=== PATIENT | male | born 1960 | race Caucasian/White ===

== ENCOUNTER 2020-05-04 22:41 | Emergency (ER) | payer SELFPAY ==
--- NOTE | ~2020-05-04 | CT_ITS ---
EXAMINATION: CT abdomen pelvis w con DATE: 05/04/2020 23:55 INDICATION: Rectal bleeding for 3 hours TECHNIQUE: Computed tomography (CT) of the abdomen and pelvis was performed without intravenous contr ast. The dose-length product was 543.22 mGy-cm. Automated exposure control and iterative reconstructi on technique were employed. COMPARISON: No prior studies for comparison. FINDINGS: Lung bases unremarkable. Heart size normal. There is pectus excavatum. Heart size normal. T here are liver cysts. The spleen, pancreas, adrenal glands and kidneys are unremarkable. Nonobstructi ve bowel gas pattern. Bladder wall is diffusely thickened with perivesical infiltration. Mildly enlar ged portacaval lymph node measuring 12 mm, likely reactive. Fat-containing umbilical hernia. No free air or free fluid. Nonobstructive bowel gas pattern. Colonic diverticulosis without evidence for dive rticulitis. Normal appendix. Grade 1 spondylolisthesis at L5-S1 with associated spondylosis at this l evel. IMPRESSION: 1. Bladder wall thickening with perivesical fatty infiltration, compatible cystitis. Correlate clinic ally with urinalysis. Reviewed, dictated and finalized at location A. ITAL SCIENTIST IMPRESSION: 1. Bladder wall thickening with perivesical fatty infiltration, compatible cyst itis. Correlate clinically with urinalysis.
[2020-05-04 22:46] VITALS: BP 150/87; PULSE 75; RESP 18; TEMP 36.2; O2SAT 97
[2020-05-04 23:01] VITALS: PULSE 74; RESP 17; O2SAT 98
[2020-05-04 23:02] VITALS: BP 170/89; PULSE 69; RESP 13; O2SAT 98
[2020-05-04] MEDS: PANTOPRAZOLE SODIUM IV 40 MG VIAL IV PUSH (23:10)
[2020-05-04] MEDS: ONDANSETRON INJ 4 MG/2 ML VIAL IV PUSH (23:10)
[2020-05-04] MEDS: SODIUM CHLORIDE 0.9% IV 1,000 ML 999 ML IV CONT (23:10)
[2020-05-04 23:15] VITALS: PULSE 75; RESP 22
[2020-05-04 23:24] LABS: Basophils Percent Auto 0.9 % (0.2-1.2); Eosinophils Absolute Auto 0.3 K/mm3 (0-0.3); Hematocrit 42.2 % (42.0-52.0); Hemoglobin 14.3 g/dL (14.0-18.0); Lymphocytes Absolute Auto 2.14 K/mm3 (0.9-3.2); Lymphocytes Percent Auto 48.2 % (18.3-44.2); Mean Corpuscular HGB Conc 33.9 g/dl (32-36); Mean Corpuscular Hemoglobin 31.4 pg (26-34); Mean Corpuscular Volume 92.5 fl (80-100); Mean Platelet Volume 12.3 fl (7.4-10.4); Monocytes Absolute Auto 0.5 K/mm3 (0.1-0.6); Monocytes Percent Auto 11.3 % (2.6-8.5); Neutrophils Absolute Auto 1.5 K/mm3 (1.3-6.7); Neutrophils Percent Auto 32.6 % (45.5-73.1); Platelet Count Result 156 k/mm3 (150-375); Red Blood Count 4.56 M/mm3 (4.6-6.20); Red Cell Distribution Width 13.2 % (11.5-14.5); White Blood Count 4.4 K/mm3 (4.5-10.0)
[2020-05-04 23:34] LABS: INR 1.1; Partial Thromboplastin Time 29.1 SECONDS (22.3-36.8); Prothrombin Time 14.4 Seconds (11.1-14.7)
[2020-05-04 23:37] LABS: Alanine Aminotransferase 31 U/L (4-50); Albumin Level 4.2 g/dL (3.5-5.1); Alkaline Phosphatase 68 U/L (38-126); Anion Gap 8 mmol/L (8-16); Aspartate Amino Transferase 38 U/L (17-59); Bilirubin,Total 0.3 mg/dL (0.2-1.3); Blood Urea Nitrogen 14 mg/dL (9-20); Carbon Dioxide 28 mmol/L (22-30); Chloride 106 mmol/L (98-107); Estimated CRCL calculation 93 ml/min; Estimated Glomerular Filt Rate > 60; Glucose 105 mg/dL (75-110); Lipase 119 U/L (23-300); Magnesium 1.9 mg/dL (1.6-2.3); Potassium 3.6 mmol/L (3.4-5.0); Sodium 142 mmol/L (137-145)
--- NOTE | 2020-05-05 00:58 | ED.GENADULT ---
HPI - General Adult General Chief complaint: GI Bleed Stated complaint: Blooding from rectum Time Seen by Provider: 05/04/20 22:54 History of Present Illness HPI narrative: Patient is a 59-year-old gentleman who presents the emergency department with chief complaint of rectal bleeding. Patient reports that this evening he had 3 episodes of bright red blood per rectum. Patient reports he has had no pain with these episodes reports that he has not had this happen before is not on anticoagulants or any antiplatelet therapy. The patient reports he takes occasional ibuprofen. Patient denies abdominal pain denies nausea or vomiting. Patient denies lightheadedness or near syncope. Related Data Allergies Allergy/AdvReac Type Severity Reaction Status Date / Time No Known Allergies Allergy Verified 05/04/20 22:48 Review of Systems Review of Systems: Narrative: A 10 system review of systems was completed on the patient and is negative except for what is stated in the HPI. Nursing and ancillary documentation was reviewed. PMFSH Past Medical History Medical History Diverticulosis Family History Family History Father Diabetes mellitus Family history of cardiovascular disease Acute myocardial infarction Mother Family history of lung cancer Diabetes mellitus Sibling Depression Other Asthma Social History Social History Smoking status: Never smoker Alcohol intake: never Exam Narrative: Exam Narrative: GENERAL: Well-appearing, well-nourished, and in no acute distress. HEAD: Normocephalic, atraumatic. EYES: PERRLA and EOMI. ENT: Nares clear, no rhinorrhea or epistaxis. Mucous membranes moist. NECK: Supple. CHEST: Clear to auscultation. No respiratory distress. HEART: Regular rate and rhythm. No murmur heard. Normal peripheral pulses. ABDOMEN: Soft, nontender, nondistended, normal active bowel sounds. EXTREMITIES: Normal range of motion. No edema. SKIN: Warm, dry, no rash. NEURO: No focal deficits. Alert and oriented x3. PSYCH: Normal mood and affect. Course Course Emergency Course: CT scan of the abdomen pelvis showed evidence of diverticulosis without evidence of diverticulitis. Vital Signs Vital signs: Vital Signs Temperature 36.2 C L 05/04/20 22:46 Pulse Rate 75 05/04/20 22:46 Respiratory Rate 18 05/04/20 22:46 Blood Pressure 150/87 H 05/04/20 22:46 Pulse Oximetry 97 05/04/20 22:46 Temperature 36.2 C L 05/04/20 22:46 Pulse Rate 75 05/04/20 23:15 Respiratory Rate 22 H 05/04/20 23:15 Blood Pressure 170/89 H 05/04/20 23:02 Pulse Oximetry 98 05/04/20 23:02 Medical Decision Making Vital Signs Vital Signs: Vital Signs Temperature 36.2 C L 05/04/20 22:46 Pulse Rate 75 05/04/20 22:46 Respiratory Rate 18 05/04/20 22:46 Blood Pressure 150/87 H 05/04/20 22:46 Pulse Oximetry 97 05/04/20 22:46 Temperature 36.2 C L 05/04/20 22:46 Pulse Rate 75 05/04/20 23:15 Respiratory Rate 22 H 05/04/20 23:15 Blood Pressure 170/89 H 05/04/20 23:02 Pulse Oximetry 98 05/04/20 23:02 Lab Data Result diagrams: 05/04/20 23:16 05/04/20 23:16 Labs: Lab Results 05/04/20 05/04/20 05/04/20 Range/Units 23:14 23:16 23:16 WBC 4.4 L (4.5-10.0) K/mm3 RBC 4.56 L (4.6-6.20) M/mm3 Hgb 14.3 (14.0-18.0) g/dL Hct 42.2 (42.0-52.0) % MCV 92.5 (80-100) fl MCH 31.4 (26-34) pg MCHC 33.9 (32-36) g/dl RDW 13.2 (11.5-14.5) % Plt Count 156 (150-375) k/mm3 MPV 12.3 H (7.4-10.4) fl Immature Gran % (Auto) 0.0 (0-0.5) % Neut % (Auto) 32.6 L (45.5-73.1) % Lymph % (Auto) 48.2 H (18.3-44.2) % Logan % (Auto) 11.3 H (2.6-8.5) % Eos % (Auto) 7.0 H (0-4.4) % Baso % (Aut
[2020-05-05 01:21] VITALS: BP 139/82; PULSE 57; RESP 14; O2SAT 97
== END 2020-05-05 01:15 | disposition home or self-care (01) ==
PROVIDERS: Emergency Provider Emergency Medicine; PCP Family Medicine
DX: K62.5 Hemorrhage of anus and rectum (principal); K57.90 Diverticulosis of intestine, part unspecified, without perforation or abscess without bleeding
CPT/HCPCS: 36415; 74177; 80053; 83690; 83735; 85025; 85610; 85730; 86850; 86900; 86901; 96361; 96374; 96375; 99284; C9113; J2405; J7030; Q9967

== ENCOUNTER 2020-12-08 21:36 | Inpatient (IN) | payer OTHER, SELFPAY ==
--- NOTE | ~2020-12-08 | CT_ITS ---
EXAMINATION: CTA chest PE protocol DATE: 12/09/2020 03:31 INDICATION: Shortness of breath. Positive d-dimer. Positive Covid. TECHNIQUE: Computed tomography angiography (CTA) of the chest was performed with 100 mL Omnipaque-350 intravenous contrast timed to evaluate the pulmonary arteries. Coronal maximum intensity projection 3D-reconstructions were created by the technologist. Automated exposure control and iterative reconst ruction technique were employed. Exam dose: 302.09 mGy-cm total exam DLP. COMPARISON: 12/08/2020 PA and lateral chest FINDINGS: Pectus excavatum. Borderline heart size. No pericardial or pleural effusion. No thoracic ao rtic aneurysm or dissection. There is diagnostic contrast enhancement of the pulmonary arteries. No central or large pulmonary emb olus is identified. Evaluation of the more peripheral pulmonary arterial branches is limited by motio n artifact. Extensive patchy groundglass infiltrates scattered throughout the lungs, suggesting Covid pneumonia. Trace left pleural effusion. No suspicious osteolytic or osteoblastic lesions. Degenerative changes of the thoracic spine. IMPRESSION: Extensive patchy groundglass infiltrates scattered throughout both lungs, suggesting Cov id 19 pneumonia No central or large pulmonary embolus is identified Pectus excavatum Reviewed, dictated and finalized at Location [facility]. Reviewed, dictated and finalized at location A. IMPRESSION: Extensive patchy groundglass infiltrates scattered throughout both lungs, suggesting Covid 19 pneumonia No central or large pulmonary embolus is identified Pectus excavatum
--- NOTE | ~2020-12-08 | XR_ITS ---
EXAMINATION: XR chest 2V DATE: 12/08/2020 22:04 INDICATION: COVID positive presenting with shortness of breath and cough TECHNIQUE: PA and lateral views of the chest were obtained. COMPARISON: None FINDINGS: Patchy airspace opacities in the bilateral mid and right lower lung zones consistent with pneumonia. No pleural effusion or pneumothorax. The cardiomediastinal silhouette is normal. Mild thoracic spondy losis. IMPRESSION: 1. Patchy bilateral lung disease consistent with COVID pneumonia. Reviewed, dictated and finalized at location A.
[2020-12-08 21:38] VITALS: BP 123/80; PULSE 89; RESP 18; TEMP 37.3; O2SAT 97
--- NOTE | 2020-12-08 21:40 | ECG_ITS ---
Measurements Intervals [place] Rate: 88 P: 29 PA: 224 QRS: -58 QRSD: 114 T: 53 QT: 349 QTc: 423 Interpretive Statements SINUS RHYTHM WITH FIRST DEGREE AV BLOCK ATRIAL AND VENTRICULAR PREMATURE COMPLEXES LEFT ATRIAL ENLARGEMENT INCOMPLETE RIGHT BUNDLE BRANCH BLOCK LEFT ANTERIOR FASCICULAR BLOCK BASELINE ARTIFACT- I, III, AVR, AVL, AVF ABNORMAL ECG Electronically Signed On 12-10-2020 9:11:17 CDT by Ryan Batista D.O.
[2020-12-08 22:15] LABS: Basophils Percent Auto 0.2 % (0.2-1.2); Hematocrit 44.5 % (42.0-52.0); Immature Granulocyte Absolute 0.02 K/mm3 (0.00-0.031); Immature Granulocyte Percent A 0.3 % (0-0.5); Lymphocytes Absolute Auto 0.59 K/mm3 (0.9-3.2); Lymphocytes Percent Auto 9.7 % (18.3-44.2); Mean Corpuscular HGB Conc 33.7 g/dl (32-36); Mean Corpuscular Hemoglobin 30.5 pg (26-34); Mean Corpuscular Volume 90.6 fl (80-100); Monocytes Absolute Auto 0.2 K/mm3 (0.1-0.6); Monocytes Percent Auto 3.3 % (2.6-8.5); Neutrophils Absolute Auto 5.3 K/mm3 (1.3-6.7); Neutrophils Percent Auto 86.5 % (45.5-73.1); Platelet Count Result 147 k/mm3 (150-375); Red Blood Count 4.91 M/mm3 (4.6-6.20); Red Cell Distribution Width 12.5 % (11.5-14.5); White Blood Count 6.1 K/mm3 (4.5-10.0)
[2020-12-08 22:24] LABS: Anion Gap 8 mmol/L (8-16); Blood Urea Nitrogen 10 mg/dL (9-20); Calcium 9.3 mg/dL (8.4-10.2); Carbon Dioxide 31 mmol/L (22-30); Chloride 98 mmol/L (98-107); Estimated Glomerular Filt Rate > 60; Glucose 112 mg/dL (65-110); Potassium 3.9 mmol/L (3.4-5.0); Sodium 137 mmol/L (137-145)
[2020-12-08 23:15] VITALS: BP 114/69; PULSE 91; TEMP 38.8; O2SAT 96
[2020-12-09] VITALS (12 sets, daily range): BP systolic 119–140; BP diastolic 67–95; PULSE 78–88; RESP 16–24; TEMP 36.4–37.5; O2SAT 90–96; BMI 24.5
--- NOTE | 2020-12-09 01:32 | ED.SOB ---
HPI - SOB/Dyspnea General Chief Complaint: Shortness of Breath/Dyspnea Stated Complaint: Covid + Time Seen by Provider: 12/09/20 00:57 Source: patient and RN notes reviewed Mode of arrival: ambulatory Limitations: no limitations History of Present Illness HPI Narrative: This is a 59 year old Covid + male with history of asthma who presents for evaluation of shortness of breath. He developed symptoms of covid on November 28. His symptoms are cough, headache, fever, nausea and vomiting. He was diagnosed with COVID on 11/30/20. He has been taking over the counter medications for his symptoms. His headache has resolved but he reports worsening shortness of breath and fever. He last took Tylenol at 5pm. He had emesis x 1 tonight. He has been using his albuterol inhaler every 2 hours. He states his oxygen saturation as been 93-96% on room air. HE is unvaccinated. Related Data Allergies Allergy/AdvReac Type Severity Reaction Status Date / Time No Known Allergies Allergy Verified 12/09/20 01:21 Review of Systems Review of Systems: All systems reviewed & are unremarkable except as noted in HPI and below PMFSH Past Medical History Medical History (Updated 12/09/20 @ 05:39 by Florinda Ann MD) Asthma Diverticulosis Surgical History Surgical History (Updated 12/09/20 @ 01:36 by Florinda Ann MD) No pertinent past surgical history Family History Family History Father Diabetes mellitus Family history of cardiovascular disease Acute myocardial infarction Mother Family history of lung cancer Diabetes mellitus Sibling Depression Other Asthma Social History Social History Smoking status: Never smoker Alcohol intake: never Exam Const: General: no acute distress and alert Orientation/consciousness: patient oriented x3 Eyes: EOM: EOMs intact bilaterally Chest: Chest palpation & inspection: normal inspection of the chest Resp: Effort & Inspection: normal respiratory effort and no retractions Auscultation: crackles Cardio: Rate: regular rate Rhythm: regular rhythm Heart sounds: Murmur heart sound present GI: GI Palp: Yes Soft to palpation, No Tenderness to palpation present (GI) and No Guarding due to palpation present (GI) Auscultation: normal bowel sounds Skin: General skin exam: normal color Rashes: no rashes Neuro: General: patient oriented x3, moves all extremities and CN's II-XI intact bilaterally Psych: Mental Status: mental status grossly normal Affect: normal affect Course Reevaluation(s) Reevaluation #1: I have discussed with patient findings of covid pneumonia but no PE. His oxygen saturation dropped to 86% on room air with ambulation. he is quite short of breath when got back in bed. Date: 12/09/20 Time: 05:32 Consultations Consultation #1: I discussed case and symptoms onset . Dr. Prasad accepts patient and she request patient to get Remdesivir, plasma and rocephin and azithromycin. Date: 12/09/20 Time: 05:34 Vital Signs Vital signs: Vital Signs Temperature 99.2 F 12/08/20 21:38 Pulse Rate 89 12/08/20 21:38 Respiratory Rate 18 12/08/20 21:38 Blood Pressure 123/80 12/08/20 21:38 Pulse Oximetry 97 12/08/20 21:38 Temperature 101.9 F H 12/08/20 23:15 Pulse Rate 88 12/09/20 06:51 Respiratory Rate 20 12/09/20 06:51 Blood Pressure 129/95 H 12/09/20 06:51 Pulse Oximetry 95 12/09/20 06:51 MDM - SOB/Dyspnea Lab Data Attestation: I reviewed the patient's lab results. Result diagrams: 12/08/20 21:52 12/08/20 21:52 Labs: Lab Results 12/08/20 12/08/20 12/09/20 Range/Units 21:52 21:52 01:57 WBC 6.1 (4.5-10.0) K/mm3 RBC 4.91 (4.6-6.20) M/mm3 Hgb 15.0 (14.0-18.0) g/dL Hct 44.5 (42.0-52.0) % MCV 90.6 (80-100) fl MCH 30.5
[2020-12-09] MEDS: IPRATROPIUM BR 0.02% INH SOLN 0.5 MG/2.5 ML VIAL (01:36)
[2020-12-09] MEDS: ALBUTEROL SULFATE (*SP) AEROSOL 1 PUFF 4 PUFF INHALATION (01:36)
[2020-12-09] MEDS: ONDANSETRON INJ 4 MG/2 ML VIAL IV PUSH (02:02)
[2020-12-09 02:14] LABS: Lactate Dehydrogenase 817 U/L (313-618)
[2020-12-09 02:23] LABS: Prothrombin Time 13.4 Seconds (11.1-14.7)
[2020-12-09 02:26] LABS: D Dimer 1.05 ug/mL (<0.48)
[2020-12-09 02:32] LABS: Alanine Aminotransferase 38 U/L (4-50); Albumin Level 3.9 g/dL (3.5-5.1); Alkaline Phosphatase 79 U/L (38-126); Aspartate Amino Transferase 64 U/L (17-59); Bilirubin,Total 0.4 mg/dL (0.2-1.3); CRP 15.4 mg/dL (<1.0)
--- NOTE | 2020-12-09 03:09 | PC.NURSE ---
assumed care of pt at this time. Report from Olinda WERNER
[2020-12-09] MEDS: DEXAMETHASONE 2 MG TABLET 6 MG PO (06:10)
[2020-12-09 08:25] LABS: Alanine Aminotransferase 34 U/L (4-50)
--- NOTE | 2020-12-09 08:34 | PM.IMHP ---
H&P: HPI History of Present Illness Date/Time: 12/09/20 08:34 Chief Complaint: Shortness of breath Narrative: This is a 59 year old Covid + male with history of well-controlled asthma who presents for evaluation of shortness of breath. He developed symptoms of covid on November 28. His symptoms are cough, headache, fever, nausea and vomiting. He was diagnosed with COVID on 11/30/20. He has been taking over the counter medications for his symptoms. His headache has resolved but he reports worsening shortness of breath and fever. He last took Tylenol at 5pm. He had emesis x 1 last night He has He has been using his albuterol inhaler every 2 hours. He states his oxygen saturation as been 93-96% on room air. HE is unvaccinated. He also is physically very active and has been running/biking several miles every day Review of Systems Review of Systems: - CONSTITUTIONAL: Denies weight loss, reports fever and chills. - HEENT: Denies changes in vision and hearing - RESPIRATORY: Reports SOB and cough. - CV: Denies palpitations and CP. - GI: Denies abdominal pain, nausea, reports vomiting and denies diarrhea. - : Denies dysuria and urinary frequency. - MSK: Denies myalgia and joint pain. - SKIN: Denies rash and pruritus. - NEUROLOGICAL: Denies headache and syncope. - PSYCHIATRIC: Denies recent changes in mood. Denies anxiety and depression. All systems reviewed & are unremarkable except as noted in HPI and below Constitutional: Constitutional: Reports fatigue and Reports weakness Neurologic: Reports weakness Endocrine: Endocrine: Reports fatigue [facility] Past Medical History Medical History (Updated 12/09/20 @ 08:38 by Rahul Doan MD) Asthma Diverticulosis Surgical History Surgical History (Updated 12/09/20 @ 01:36 by Florinda Ann MD) No pertinent past surgical history Family History Family History Father Diabetes mellitus Family history of cardiovascular disease Acute myocardial infarction Mother Family history of lung cancer Diabetes mellitus Sibling Depression Other Asthma Social History Social History Smoking status: Never smoker Alcohol intake: never Meds Home Medications and Allergies Home Medications Medication Instructions Recorded Confirmed Type hydrocortisone acetate 25 mg 25 mg NE BID #24 ea 09/10/20 Rx rectal suppository acyclovir 800 mg tablet 800 mg PO DAILY #90 tablet 09/11/20 Rx albuterol sulfate 90 mcg/actuation 2 puff INHALATION Q4H PRN #8.5 g 12/04/20 Rx aerosol inhaler fluticasone furoate 200 1 inh INHALATION DAILY #60 ea 12/04/20 Rx mcg-vilanterol 25 mcg/dose inhalation powder Allergies Allergy/AdvReac Type Severity Reaction Status Date / Time No Known Allergies Allergy Verified 12/09/20 01:21 Vital Signs Vital Signs - 24 hr 12/08/20 21:38 12/08/20 23:15 12/09/20 01:16 Temperature 99.2 F 101.9 F H Pulse Rate 89 91 85 Respiratory Rate 18 24 H Blood Pressure 123/80 114/69 138/75 Pulse Oximetry 97 96 96 12/09/20 03:30 12/09/20 06:51 12/09/20 08:00 Temperature 97.5 F L Pulse Rate 78 88 78 Respiratory Rate 18 20 18 Blood Pressure 140/70 129/95 H 134/71 Pulse Oximetry 96 95 90 Exam Narrative: GENERAL: The patient is well developed, not in acute distress HEENT: Nonicteric sclerae, PERRLA, EOMI. Oropharynx clear. Moist mucous membranes. Conjunctivae appear well perfused. CHEST: Chest wall is nontender. Pectus excavatum noted HEART: Regular rate and rhythm without murmur, rubs, or gallops LUNGS: Clear to auscultation bilaterally. no respiratory distress ABDOMEN: Soft, positive bowel sounds, non-tender, no organomegaly. SKIN: No rash, no excessive bruising, petechiae, or purpura. NEUROLOGIC: Cranial nerves II-XII intact, alert and oriented x 3, no gatito
[2020-12-09] MEDS: REMDESIVIR 200 MG/NS 250 ML 200 MG/250 ML BAG 250 MG IVPB (09:16)
[2020-12-09] MEDS: ENOXAPARIN 40 MG/0.4 ML SYRINGE SUB-Q ×2 (09:17→21:35)
--- NOTE | 2020-12-09 09:33 | ADMGEN ---
This patient, Alex Sommers, was admitted to 3 [facility] Surg Room 329-01. Patient/family oriented to hospital policies and general routines including ID bracelet, bed and alarms, visiting hours, pain management, procedures, bathroom and other care routines, personal items, smoking policy, room service/diet, and visiting hours. Information on how to activate the Rapid Response Team has been discussed. Patient/Family are encouraged to report perceived risks to care and to ask questions if they do not understand what they are told or what they should do.
[2020-12-09] MEDS: SODIUM CHLORIDE 0.9% IV 250 ML 30 ML IV CONT (14:41)
[2020-12-10] VITALS (7 sets, daily range): BP systolic 117–131; BP diastolic 65–83; PULSE 55–114; RESP 14–20; TEMP 36.6–37.3; O2SAT 92–97
[2020-12-10 06:38] LABS: Hematocrit 39.9 % (42.0-52.0); Hemoglobin 13.4 g/dL (14.0-18.0); Immature Granulocyte Absolute 0.01 K/mm3 (0.00-0.031); Immature Granulocyte Percent A 0.2 % (0-0.5); Lymphocytes Absolute Auto 0.56 K/mm3 (0.9-3.2); Lymphocytes Percent Auto 12.9 % (18.3-44.2); Mean Corpuscular HGB Conc 33.6 g/dl (32-36); Mean Corpuscular Hemoglobin 30.5 pg (26-34); Mean Corpuscular Volume 90.9 fl (80-100); Mean Platelet Volume 11.7 fl (7.4-10.4); Monocytes Absolute Auto 0.3 K/mm3 (0.1-0.6); Monocytes Percent Auto 7.1 % (2.6-8.5); Neutrophils Absolute Auto 3.5 K/mm3 (1.3-6.7); Neutrophils Percent Auto 79.8 % (45.5-73.1); Platelet Count Result 157 k/mm3 (150-375); Red Blood Count 4.39 M/mm3 (4.6-6.20); Red Cell Distribution Width 12.5 % (11.5-14.5); White Blood Count 4.4 K/mm3 (4.5-10.0)
[2020-12-10 06:45] LABS: Alanine Aminotransferase 38 U/L (4-50); Anion Gap 9 mmol/L (8-16); Blood Urea Nitrogen 14 mg/dL (9-20); Calcium 8.7 mg/dL (8.4-10.2); Carbon Dioxide 25 mmol/L (22-30); Chloride 99 mmol/L (98-107); Estimated CRCL calculation 121 ml/min; Estimated Glomerular Filt Rate > 60; Glucose 97 mg/dL (65-110); Potassium 4.3 mmol/L (3.4-5.0); Sodium 133 mmol/L (137-145)
[2020-12-10 06:46] LABS: INR 1.1; Prothrombin Time 14.1 Seconds (11.1-14.7)
[2020-12-10] MEDS: DEXAMETHASONE 2 MG TABLET 6 MG PO (08:03)
[2020-12-10] MEDS: ENOXAPARIN 40 MG/0.4 ML SYRINGE SUB-Q ×2 (08:03→21:22)
[2020-12-10] MEDS: REMDESIVIR 100 MG/NS 250 ML 100 MG/250 ML BAG 250 MG IVPB (09:47)
--- NOTE | 2020-12-10 19:01 | PM.IMPN ---
Progress Note: A&P Assessment and Plan (1) Pneumonia due to COVID-19 virus: Code(s): U07.1 - COVID-19; J12.82 - Pneumonia due to coronavirus disease 2019 Status: Acute (2) Hypoxia: Code(s): R09.02 - Hypoxemia Status: Acute (3) Asthma: Code(s): J45.909 - Unspecified asthma, uncomplicated Status: Inactive (4) Diverticulosis: Code(s): K57.90 - Diverticulosis of intestine, part unspecified, without perforation or abscess without bleeding Status: Acute Additional Plan Hypoxic respiratory failure CTA negative for PE Bilateral multifocal COVID pneumonia History of well controlled asthma Diverticulosis Elevated D-dimer CRP and ferritin Mild thrombocytopenia azithromycin Check procalcitonin Remdesivir and Decadron started Oxygen supplementation Full code status Lovenox 40 mg subQ q.12 hours 03/22 Procalcitonin has not resulted yet Will continue azithromycin and discontinue Rocephin Continue remdesivir and Decadron Insulin sliding scale p.r.n. for steroid induced hyperglycemia Albuterol p.r.n. Oxygen supplementation p.r.n. patient advised need to increase during ambulation and exertion Continue Lovenox Subjective Date/time seen: 12/10/20 19:01 Patient doing okay on 2 L of oxygen receiving COVID therapy. He does develop shortness of breath with ambulation. He developed the synagogue anti-vaccination and believes that this is an alert hands. Patient is reassured that he will continue on current medical therapy planned and hopefully will be discharged on the 6th day after completing days of remdesivir. Exam Narrative: GENERAL: The patient is well developed, not in acute distress HEENT: Nonicteric sclerae, EOMI. Oropharynx clear. Moist mucous membranes. Conjunctivae appear well perfused. LUNGS: Symmetric chest rise, no respiratory distress SKIN: No rash, no excessive bruising, petechiae, or purpura. NEUROLOGIC: Cranial nerves II-XII intact, alert and oriented x 3, no gross motor deficits EXTREMITIES: no edema, cyanosis or clubbing Objective Data Vital Signs Vital Signs: Vital Signs - 24 hr 12/09/20 20:00 12/09/20 20:15 12/10/20 00:00 Temperature 99.3 F 98.2 F Pulse Rate 82 82 64 Respiratory Rate 22 H 22 H 20 Blood Pressure 127/72 123/73 Pulse Oximetry 91 91 97 12/10/20 04:00 12/10/20 08:00 12/10/20 12:56 Temperature 98.7 F Pulse Rate 58 L Respiratory Rate 20 Blood Pressure 128/68 Pulse Oximetry 97 92 95 Intake/Output Intake/Output: Intake & Output 12/07/20 12/08/20 12/09/20 12/10/20 23:59 23:59 23:59 23:59 Intake Total 2873 700 Output Total 1450 500 Balance 1423 200 Meds/Results Medications: Active Medications Generic Name Dose Route Start Last Admin Trade Name Freq PRN Reason Stop Dose Admin Albuterol 2 puff 12/09/20 05:39 Albuterol Sulfate (*Sp) Aerosol 1 Puff INHALATION QIDRT PRN Shortness Of Breath Dexamethasone 6 mg 12/10/20 08:00 12/10/20 08:03 Dexamethasone 2 Mg Tablet PO 12/18/20 08:01 6 mg DAILY@0800 DANNY Administration Enoxaparin Sodium 40 mg 12/09/20 09:00 12/10/20 08:03 Enoxaparin 40 Mg/0.4 Ml Syringe SUB-Q 40 mg Q12HR DANNY Administration Remdesivir 100 mg in 250 mls @ 250 mls/hr 12/10/20 10:00 12/10/20 10:55 IVPB 12/13/20 10:01 Infused Q24H DANNY Infusion Radiology Results: ITS Impressions Chest X-Ray 12/08/20 22:23 IMPRESSION: 1. Patchy bilateral lung disease consistent with COVID pneumonia. Chest CTA 12/09/20 07:28 IMPRESSION: Extensive patchy groundglass infiltrates scattered throughout both lungs, suggesting Covid 19 pneumonia No central or large pulmonary embolus is identified Pectus excavatum Labs Labs: Laboratory Results - last 24 hr 12/10/20 12/10/20 12/10/20 06:20 06:20 06:20 WBC 4.4 L RBC 4.39 L Hgb 13.4 L Hct 39.9 L MCV 90.9 MCH 30.5 MCHC 33.6 RDW 12.5 Plt Count 157 MPV
[2020-12-10 19:45] LABS: Hemoglobin A1C 5.8 % (<5.7)
[2020-12-11] VITALS: BP 129/75; PULSE 55; RESP 18; TEMP 37.1; O2SAT 95
[2020-12-11 04:00] VITALS: BP 125/86; PULSE 58; RESP 18; TEMP 36.6; O2SAT 93
[2020-12-11 07:26] LABS: Alanine Aminotransferase 51 U/L (4-50); Estimated CRCL calculation 106 ml/min; Estimated Glomerular Filt Rate > 60
[2020-12-11 07:39] LABS: INR 1.1; Prothrombin Time 14.5 Seconds (11.1-14.7)
[2020-12-11 08:00] VITALS: BP 136/88; PULSE 61; RESP 16; TEMP 36.4; O2SAT 92
[2020-12-11 08:52] LABS: Glucose Point of Care 97 mg/dl (65-105)
[2020-12-11] MEDS: ENOXAPARIN 40 MG/0.4 ML SYRINGE SUB-Q ×2 (10:04→22:16)
[2020-12-11] MEDS: DEXAMETHASONE 2 MG TABLET 6 MG PO (10:04)
[2020-12-11] MEDS: REMDESIVIR 100 MG/NS 250 ML 100 MG/250 ML BAG 250 MG IVPB (10:44)
[2020-12-11 11:59] LABS: Glucose Point of Care 154 mg/dl (65-105)
[2020-12-11 14:00] VITALS: BP 130/74; PULSE 71; RESP 18; TEMP 36.7; O2SAT 98
[2020-12-11 17:00] VITALS: O2SAT 97
[2020-12-11 18:24] LABS: Glucose Point of Care 132 mg/dl (65-105)
--- NOTE | 2020-12-11 18:47 | PM.IMPN ---
Progress Note: A&P Assessment and Plan (1) Pneumonia due to COVID-19 virus: Code(s): U07.1 - COVID-19; J12.82 - Pneumonia due to coronavirus disease 2018 Status: Acute (2) Hypoxia: Code(s): R09.02 - Hypoxemia Status: Acute (3) Asthma: Code(s): J45.909 - Unspecified asthma, uncomplicated Status: Inactive (4) Diverticulosis: Code(s): K57.90 - Diverticulosis of intestine, part unspecified, without perforation or abscess without bleeding Status: Acute Additional Plan Hypoxic respiratory failure CTA negative for PE Bilateral multifocal COVID pneumonia History of well controlled asthma Diverticulosis Elevated D-dimer CRP and ferritin Mild thrombocytopenia azithromycin Check procalcitonin Remdesivir and Decadron started Oxygen supplementation Full code status Lovenox 40 mg subQ q.12 hours 12/10/20 Procalcitonin has not resulted yet Will continue azithromycin and discontinue Rocephin Continue remdesivir and Decadron Insulin sliding scale p.r.n. for steroid induced hyperglycemia Albuterol p.r.n. Oxygen supplementation p.r.n. patient advised need to increase during ambulation and exertion Continue Lovenox 12/11/20 Patient continues to improve now on room air and able to ambulate without exertional dyspnea Continue current medical therapy Inflammatory markers ordered for tomorrow to evaluate ongoing and plan of care Anticipate discharge after completion of 5 day course of remdesivir 12/13/2020 Subjective Date/time seen: 12/11/20 18:47 Patient doing okay able to ambulate in his room without desaturating on room air. Exam Narrative: GENERAL: The patient is well developed, not in acute distress HEENT: Nonicteric sclerae, EOMI. Oropharynx clear. Moist mucous membranes. Conjunctivae appear well perfused. LUNGS: Symmetric chest rise, no respiratory distress, bilateral crackles SKIN: No rash, no excessive bruising, petechiae, or purpura. NEUROLOGIC: Cranial nerves II-XII intact, alert and oriented x 3, no gross motor deficits EXTREMITIES: no edema, cyanosis or clubbing Objective Data Vital Signs Vital Signs: Vital Signs - 24 hr 12/10/20 20:00 12/11/20 00:00 12/11/20 04:00 Temperature 99.2 F 98.7 F 97.9 F Pulse Rate 55 L 55 L 58 L Respiratory Rate 18 18 18 Blood Pressure 117/76 129/75 125/86 Pulse Oximetry 95 95 93 12/11/20 08:00 12/11/20 14:00 12/11/20 17:00 Temperature 97.5 F L 98.0 F Pulse Rate 61 71 Respiratory Rate 16 18 Blood Pressure 136/88 130/74 Pulse Oximetry 92 98 97 Intake/Output Intake/Output: Intake & Output 12/08/20 12/09/20 12/10/20 12/11/20 23:59 23:59 23:59 23:59 Intake Total 2873 2690 930 Output Total 1450 1850 400 Balance 1423 840 530 Meds/Results Medications: Active Medications Generic Name Dose Route Start Last Admin Trade Name Freq PRN Reason Stop Dose Admin Albuterol 5 mg 12/10/20 19:07 Albuterol Sulfate Neb 2.5 Mg/0.5 Ml Inh INHALATION Q4HRT PRN Shortness Of Breath Dexamethasone 6 mg 12/10/20 08:00 12/11/20 10:04 Dexamethasone 2 Mg Tablet PO 12/18/20 08:01 6 mg DAILY@0800 DANNY Administration Dextrose 12.5 gm 12/10/20 19:06 Dextrose 50% 25 Gm/50 Ml Syringe IV PUSH PRN PRN Hypoglycemia Protocol Enoxaparin Sodium 40 mg 12/09/20 09:00 12/11/20 10:04 Enoxaparin 40 Mg/0.4 Ml Syringe SUB-Q 40 mg Q12HR DANNY Administration Glucagon 1 mg 12/10/20 19:06 Glucagon For Inj 1 Mg Vial IM PRN PRN Hypoglycemia Protocol Glucose 15 gm 12/10/20 19:06 Glucose Oral Gel 15 Gm Of Glucse In 37.5 Gm Tube PO PRN PRN Hypoglycemia Protocol Remdesivir 100 mg in 250 mls @ 250 mls/hr 12/10/20 10:00 12/11/20 11:44 IVPB 12/13/20 10:01 Infused Q24H DANNY Infusion Dextrose 1,000 mls @ 100 mls/hr 12/10/20 19:06 Dextrose 5% 1,000 Ml IVPB PRN PRN Hypoglycemia Protocol Insulin Aspart 2 - 5 units 12/11/20 0
[2020-12-11 21:58] VITALS: BP 139/74; PULSE 59; RESP 18; TEMP 37.2; O2SAT 94
[2020-12-11 23:37] LABS: Glucose Point of Care 127 mg/dl (65-105)
[2020-12-12 05:48] VITALS: BP 121/71; PULSE 60; RESP 18; TEMP 36.8; O2SAT 92
[2020-12-12 06:25] LABS: Hematocrit 41.2 % (42.0-52.0); Hemoglobin 14.2 g/dL (14.0-18.0); Immature Granulocyte Absolute 0.05 K/mm3 (0.00-0.031); Immature Granulocyte Percent A 0.6 % (0-0.5); Lymphocytes Absolute Auto 0.71 K/mm3 (0.9-3.2); Lymphocytes Percent Auto 8.1 % (18.3-44.2); Mean Corpuscular HGB Conc 34.5 g/dl (32-36); Mean Corpuscular Hemoglobin 30.5 pg (26-34); Mean Corpuscular Volume 88.6 fl (80-100); Mean Platelet Volume 11.7 fl (7.4-10.4); Monocytes Absolute Auto 0.7 K/mm3 (0.1-0.6); Monocytes Percent Auto 7.4 % (2.6-8.5); Neutrophils Absolute Auto 7.4 K/mm3 (1.3-6.7); Neutrophils Percent Auto 83.9 % (45.5-73.1); Platelet Count Result 238 k/mm3 (150-375); Red Blood Count 4.65 M/mm3 (4.6-6.20); Red Cell Distribution Width 12.5 % (11.5-14.5); White Blood Count 8.8 K/mm3 (4.5-10.0)
[2020-12-12 06:43] LABS: INR 1.2; Prothrombin Time 14.7 Seconds (11.1-14.7)
[2020-12-12 06:46] LABS: D Dimer 0.78 ug/mL (<0.48)
[2020-12-12 08:20] LABS: Glucose Point of Care 91 mg/dl (65-105)
[2020-12-12 09:36] LABS: Alanine Aminotransferase 109 U/L (4-50); Albumin Level 3.4 g/dL (3.5-5.1); Alkaline Phosphatase 75 U/L (38-126); Anion Gap 9 mmol/L (8-16); Aspartate Amino Transferase 76 U/L (17-59); Bilirubin,Total 0.5 mg/dL (0.2-1.3); Blood Urea Nitrogen 18 mg/dL (9-20); CRP 3.9 mg/dL (<1.0); Calcium 9.2 mg/dL (8.4-10.2); Carbon Dioxide 27 mmol/L (22-30); Chloride 105 mmol/L (98-107); Estimated CRCL calculation 121 ml/min; Estimated Glomerular Filt Rate > 60; Glucose 93 mg/dL (65-110); Magnesium 1.9 mg/dL (1.6-2.3); Potassium 4.6 mmol/L (3.4-5.0); Sodium 141 mmol/L (137-145)
[2020-12-12] MEDS: DEXAMETHASONE 2 MG TABLET 6 MG PO (10:28)
[2020-12-12] MEDS: ENOXAPARIN 40 MG/0.4 ML SYRINGE SUB-Q ×2 (10:28→20:09)
[2020-12-12] MEDS: REMDESIVIR 100 MG/NS 250 ML 100 MG/250 ML BAG 250 MG IVPB (10:29)
--- NOTE | 2020-12-12 11:40 | PM.IMPN ---
Progress Note: A&P Assessment and Plan (1) Pneumonia due to COVID-19 virus: Code(s): U07.1 - COVID-19; J12.82 - Pneumonia due to coronavirus disease 2018 Status: Acute (2) Hypoxia: Code(s): R09.02 - Hypoxemia Status: Acute (3) Asthma: Code(s): J45.909 - Unspecified asthma, uncomplicated Status: Inactive (4) Diverticulosis: Code(s): K57.90 - Diverticulosis of intestine, part unspecified, without perforation or abscess without bleeding Status: Acute Additional Plan Hypoxic respiratory failure CTA negative for PE Bilateral multifocal COVID pneumonia History of well controlled asthma Diverticulosis Elevated D-dimer CRP and ferritin Mild thrombocytopenia azithromycin Check procalcitonin Remdesivir and Decadron started Oxygen supplementation Full code status Lovenox 40 mg subQ q.12 hours 12/10/20 Procalcitonin has not resulted yet Will continue azithromycin and discontinue Rocephin Continue remdesivir and Decadron Insulin sliding scale p.r.n. for steroid induced hyperglycemia Albuterol p.r.n. Oxygen supplementation p.r.n. patient advised need to increase during ambulation and exertion Continue Lovenox 12/11/20 Patient continues to improve now on room air and able to ambulate without exertional dyspnea Continue current medical therapy Inflammatory markers ordered for tomorrow to evaluate ongoing and plan of care Anticipate discharge after completion of 5 day course of remdesivir 12/13/2020 12/12/2020 Inflammatory markers down trending Patient continues to improve with benign clinical course Anticipate discharge home tomorrow after remdesivir dose 5. 12/13/2020 Patient to finish his last dose of remdesivir tomorrow anticipate discharge home thereafter on dexamethasone for 5 more days. Patient advised to quarantine for a total of 20 days after becoming asymptomatic. Subjective Date/time seen: 12/12/20 11:40 Patient continued to improve is noted to have some mild dyspnea when speaking has to pause and take deep breaths he is on room air and is able to ambulate and keep his oxygen saturation up Exam Narrative: GENERAL: The patient is well developed, not in acute distress HEENT: Nonicteric sclerae, EOMI. Oropharynx clear. Moist mucous membranes. Conjunctivae appear well perfused. LUNGS: Symmetric chest rise, no respiratory distress, bilateral crackles SKIN: No rash, no excessive bruising, petechiae, or purpura. NEUROLOGIC: Cranial nerves II-XII intact, alert and oriented x 3, no gross motor deficits EXTREMITIES: no edema, cyanosis or clubbing Objective Data Vital Signs Vital Signs: Vital Signs - 24 hr 12/11/20 14:00 12/11/20 17:00 12/11/20 21:58 Temperature 98.0 F 98.9 F Pulse Rate 71 59 L Respiratory Rate 18 18 Blood Pressure 130/74 139/74 Pulse Oximetry 98 97 94 12/12/20 05:48 Temperature 98.2 F Pulse Rate 60 Respiratory Rate 18 Blood Pressure 121/71 Pulse Oximetry 92 Intake/Output Intake/Output: Intake & Output 12/09/20 12/10/20 12/11/20 12/12/20 23:59 23:59 23:59 23:59 Intake Total 2873 2690 2430 250 Output Total 1450 1850 1000 Balance 8016 900 2199 250 Meds/Results Medications: Active Medications Generic Name Dose Route Start Last Admin Trade Name Freq PRN Reason Stop Dose Admin Albuterol 5 mg 12/10/20 19:07 Albuterol Sulfate Neb 2.5 Mg/0.5 Ml Inh INHALATION Q4HRT PRN Shortness Of Breath Dexamethasone 6 mg 12/10/20 08:00 12/12/20 10:28 Dexamethasone 2 Mg Tablet PO 12/18/20 08:01 6 mg DAILY@0800 DANNY Administration Dextrose 12.5 gm 12/10/20 19:06 Dextrose 50% 25 Gm/50 Ml Syringe IV PUSH PRN PRN Hypoglycemia Protocol Enoxaparin Sodium 40 mg 12/09/20 09:00 12/12/20 10:28 Enoxaparin 40 Mg/0.4 Ml Syringe SUB-Q 40 mg Q12HR DANNY Administration Glucagon 1 mg 12/10/20 19:06 Glucagon For Inj 1 Mg Vial IM PRN PRN Hypoglycemia Protocol Glucose
[2020-12-12 11:45] LABS: Glucose Point of Care 146 mg/dl (65-105)
[2020-12-12 14:00] VITALS: BP 130/73; PULSE 80; RESP 18; TEMP 37.2; O2SAT 94
[2020-12-12 18:01] LABS: Glucose Point of Care 210 mg/dl (65-105)
[2020-12-12] MEDS: INSULIN ASPART (*BKC) 100 UNITS/ML SUB-Q (18:31)
[2020-12-12 20:19] LABS: Glucose Point of Care 121 mg/dl (65-105)
[2020-12-12 22:00] VITALS: BP 129/67; PULSE 81; RESP 18; TEMP 37.4; O2SAT 93
[2020-12-13] VITALS: BP 129/75; PULSE 68; RESP 16; TEMP 37.2; O2SAT 96
[2020-12-13 04:07] VITALS: BP 140/82; PULSE 60; RESP 16; TEMP 36.8; O2SAT 94
[2020-12-13 08:00] VITALS: BP 139/87; PULSE 91; RESP 18; TEMP 37.2; O2SAT 93
[2020-12-13 08:27] LABS: Alanine Aminotransferase 119 U/L (4-50); Estimated CRCL calculation 106 ml/min; Estimated Glomerular Filt Rate > 60
[2020-12-13 08:57] LABS: INR 1.1; Prothrombin Time 14.3 Seconds (11.1-14.7)
--- NOTE | 2020-12-13 09:45 | PM.DS ---
DS: Admitting Diagnosis Admitting Diagnosis (1) Pneumonia due to COVID-19 virus: Code(s): U07.1 - COVID-19; J12.82 - Pneumonia due to coronavirus disease 2018 Status: Acute (2) Hypoxia: Code(s): R09.02 - Hypoxemia Status: Acute (3) Asthma: Code(s): J45.909 - Unspecified asthma, uncomplicated Status: Inactive (4) Diverticulosis: Code(s): K57.90 - Diverticulosis of intestine, part unspecified, without perforation or abscess without bleeding Status: Acute DS: Discharge Diagnosis Discharge Diagnosis (1) Pneumonia due to COVID-19 virus: Code(s): U07.1 - COVID-19; J12.82 - Pneumonia due to coronavirus disease 2018 Status: Acute (2) Acute hypoxemic respiratory failure: Code(s): J96.01 - Acute respiratory failure with hypoxia Status: Acute (3) Asthma: Code(s): J45.909 - Unspecified asthma, uncomplicated Status: Acute DS: Summary Hospital Course Reason for hospitalization: Shortness of breath Hospital Course: 59-year-old male presents to the emergency room with chief complaint of shortness of breath. He had known COVID-19 infection tested positive on 11/30/2020. Patient was treated with supplemental oxygen, remdesivir, dexamethasone. He had a benign clinical course and improved rapidly. The time of discharge he is saturating in the high 90s on room air. He is discharged home in stable condition with indications of follow-up with primary care physician on 12/20 or thereafter. He is advised to go home and continue to quarantine until the completion of his 20 days. Status at Discharge Functional status at discharge: independent ambulation Overall status at discharge: patient is back to baseline Time Spent with Patient Time attestation: Total time spent providing and/or coordinating discharge services: Time spent: Greater than 30 minutes Exam Narrative: GENERAL: The patient is well developed, not in acute distress HEENT: Nonicteric sclerae, EOMI. Oropharynx clear. Moist mucous membranes. Conjunctivae appear well perfused. LUNGS: Symmetric chest rise, no respiratory distress, bilateral crackles SKIN: No rash, no excessive bruising, petechiae, or purpura. NEUROLOGIC: Cranial nerves II-XII intact, alert and oriented x 3, no gross motor deficits EXTREMITIES: no edema, cyanosis or clubbing DS: Data Data Completed and Pending Labs on day of discharge: Labs from last 24 hours 12/13/20 12/13/20 12/12/20 07:35 07:35 20:07 PT 14.3 INR 1.1 Creatinine 0.70 Estim Creat Clear Calc 106 Estimated GFR > 60 POC Capillary Glucose 121 H ALT 119 H 12/12/20 12/12/20 17:57 11:42 PT INR Creatinine Estim Creat Clear Calc Estimated GFR POC Capillary Glucose 210 H 146 H ALT Discharge Plan Discharge Attending physician on discharge: Nishi Hare Discharging Clinician: Nishi Hare Anticipated Discharge Date/Time: 12/13/20 09:44 Patient Disposition: Home, Self-Care Activity: other - see discharge instructions Diet: regular Discharge Instructions: Quarantine until 12/23/20 Patient Instructions: Antibiotic Form, COVID-19 (Coronavirus Disease 2019) (GEN) Stand Alone Forms: General Discharge Information Follow-up/Referrals: Salazar Jimenez MD [Primary Care Provider] - (after 12/23/20) Discharge Medications: New dexamethasone 2 mg Tablet 6 mg PO DAILY@0800 Qty: 5 RF: 0 Continued acyclovir 800 mg tablet 800 mg PO DAILY PRN (Reason: Shingles flare) RF: 0 hydrocortisone acetate [Anusol-HC] 25 mg suppository 25 mg MS BID PRN (Reason: Hemorrhoids) RF: 0 Breo Ellipta 200-25 mcg/dose blister with device 1 inh inhalation DAILY Qty: 60 RF: 2 albuterol sulfate [ProAir HFA] 90 mcg/actuation HFA aerosol inhaler 2 puff inhalation Q4H PRN (Reason: shortness of breath or wheezing) Qty: 8.5 RF: 3 Date of admission: 12/09/20 10:14 Primary Care Provide
[2020-12-13] MEDS: DEXAMETHASONE 2 MG TABLET 6 MG PO (10:12)
[2020-12-13] MEDS: REMDESIVIR 100 MG/NS 250 ML 100 MG/250 ML BAG 250 MG IVPB (10:12)
[2020-12-13] MEDS: ENOXAPARIN 40 MG/0.4 ML SYRINGE SUB-Q (10:13)
[2020-12-13 12:00] VITALS: BP 135/75; PULSE 65; RESP 18; TEMP 37.1; O2SAT 93
[2020-12-13 12:10] LABS: Glucose Point of Care 95 mg/dl (65-105)
[2020-12-13 13:41] LABS: Glucose Point of Care 104 mg/dl (65-105)
--- NOTE | 2020-12-13 20:01 | PC.NURSE ---
Patient called in with concerns about decreased oxygen level at home. Patient discharged home today from / with EYAL jaffe. Spoke with patient and and suggested to come back to the ER if not feeling well and having decreased oxygen level.
== END 2020-12-13 14:00 | disposition home or self-care (01) | DRG 137 ==
LOC: ANHED 12-09 05:39 → ANH3MEDSUR 12-09 06:00
PROVIDERS: Emergency Medicine; Internal Medicine; Admitting Provider Internal Medicine; Emergency Provider General Practice; PCP Family Medicine; Visit Provider Hospitalist
DX: U07.1 COVID-19 (principal); J96.01 Acute respiratory failure with hypoxia; J12.82 Pneumonia due to coronavirus disease 2019; J45.909 Unspecified asthma, uncomplicated; K57.90 Diverticulosis of intestine, part unspecified, without perforation or abscess without bleeding; R79.89 Other specified abnormal findings of blood chemistry; D69.6 Thrombocytopenia, unspecified; R73.9 Hyperglycemia, unspecified; T38.0X5A Adverse effect of glucocorticoids and synthetic analogues, initial encounter; Z79.899 Other long term (current) drug therapy
CPT/HCPCS: 36415; 36430; 71046; 71275; 80048; 80053; 80076; 82565; 82728; 82948; 83036; 83615; 83735; 84460; 85025; 85380; 85610; 85730; 86140; 86900; 86901; 93005; 96365; 96367; 96368; 96372; 96375; 99285; A9270; G0378; G0379; J0131; J0456; J0696; J1650; J1815; J2405; J7050; J8540; P9059; Q9967

== ENCOUNTER 2021-07-10 10:19 | Outpatient (CLI) | payer SELFPAY ==
--- NOTE | ~2021-07-10 | XR_ITS ---
EXAMINATION: XR forearm RT 2V INDICATION: Right forearm pain TECHNIQUE: Two views of the right forearm are obtained. COMPARISON: None available FINDINGS: Bone alignment is normal. There is no fracture. There is lateral soft tissue swelling overl nellie the proximal/mid radius. IMPRESSION: 1. Soft tissue swelling without acute osseous abnormality. Reviewed, dictated and finalized at location B. [facility]
== END 2021-07-10 10:20 | disposition home or self-care (01) ==
PROVIDERS: PCP Family Medicine; Visit Provider Family Medicine
DX: M79.631 Pain in right forearm (principal); M79.89 Other specified soft tissue disorders
CPT/HCPCS: 73090

== ENCOUNTER → 2023-02-03 10:00 | Outpatient (CLI) | payer SELFPAY ==
--- NOTE | ~2023-02-03 | XR_ITS ---
Right foot Technique: AP and lateral views were obtained. Clinical History: Fracture Findings: No acute fracture or dislocation is seen. Osseous alignment is anatomic. There is mild dege nerative change of the first MTP joint. Plantar calcaneal spur present. Soft tissues are unremarkable . Impression: No fracture or dislocation seen. Mild degenerative changes, as above. Reviewed, dictated and finalized at location . Impression: No fracture or dislocation seen. Mild degenerative changes, as above.
== END ==
PROVIDERS: PCP Family Medicine; Visit Provider Family Medicine
DX: S92.911A Unspecified fracture of right toe(s), initial encounter for closed fracture (principal)
CPT/HCPCS: 73620

== ENCOUNTER 2024-03-16 06:58 | Day surgery (SDC) | payer SELFPAY ==
[2024-03-01 14:01] VITALS: BMI 25.8
--- NOTE | 2024-03-15 16:41 | P.PNAN_ITS ---
Anes - Initial Pre Proc Eval Procedure: Operation Date: 03/16/24 08:45 Proposed Procedures p Partial Plantar Fasciectomy Left Foot - Amado Bardales Jr., DPM Date/Time: 03/15/24 16:41 Surgeon: Amado Bardales Jr., DPM Pre Op Diagnosis: Plantar Fasciitis Left Foot Patient Data Age: 63 Gender: M Height: 1.8 m Weight: 84 kg Allergies Allergy/AdvReac Type Severity Reaction Status Date / Time No Known Allergies Allergy Verified 03/16/24 07:30 Home Medications Medication Instructions Recorded Confirmed Type ascorbic acid (vitamin C) 500 mg 500 mg PO DAILY 03/01/24 03/16/24 History tablet cholecalciferol (vitamin D3) 25 25 mcg PO DAILY 03/01/24 03/16/24 History mcg (1,000 unit) tablet (Vitamin D3) magnesium 500 mg tablet 500 mg PO DAILY 03/01/24 03/16/24 History multivitamin with minerals-folic 1 tablet PO DAILY 03/01/24 03/16/24 History acid 0.4 mg tablet zinc 50 mg capsule 50 mg PO DAILY 03/01/24 03/16/24 History Patient hx anesthesia problems: none Family hx anesthesia problems: none Results Review: All pre-operative results and documents have been reviewed as part of the pre- operative evaluation. [facility] Past Medical History Medical History Asthma Diverticulosis Surgical History Surgical History No pertinent past surgical history Family History Family History Father Diabetes mellitus Family history of cardiovascular disease Acute myocardial infarction Mother Family history of lung cancer Diabetes mellitus Sibling Depression Other Asthma Social History Social History Smoking status: Never smoker Second hand tobacco smoke exposure: Yes Alcohol intake: never Substance use: never Substance use type: does not use Living arrangements: with family Gender identity (if verbalized by the patient): Male Spiritual care concerns: No Anes - Eval Final PreProcedure Day of Procedure 03/15/24 16:41 Patient weight: overweight Heart: regular rate and rhythm Lungs: clear to auscultation Airway: Mallampati scale class II Neurological: alert and oriented Last oral intake: >/= 8 hours ASA classification: II Emergent: no Anesthetic plan: proceed Anesthesia type and monitoring: general GIVS and standard monitoring Results Review: All pre-operative results and documents have been reviewed as part of the pre- operative evaluation. Informed Consent: The patient's anesthetic plan and its attendant risks and benefits were discussed with the patient/family/POA. Questions were solicited and answers provided to the satisfaction of the patient/family/POA.
--- NOTE | 2024-03-16 07:15 | WPDHPUPDATE1 ---
History and Physical Update Update Date/Time: 03/16/24 07:15 History and Physical has been reviewed, including an updated exam of the patient. There are NO changes in the patient's condition. Risks, benefits, and alternatives have been discussed and questions answered. Patient agrees to proceed with procedure.
[2024-03-16 07:40] VITALS: BP 137/92; PULSE 65; RESP 18; TEMP 36.5; O2SAT 100; BMI 26.2
[2024-03-16] MEDS: LACTATED RINGERS 1,000 ML 30 ML IV CONT (08:06)
[2024-03-16] MEDS: ceFAZolin SODIUM 2 GM/20 ML SW SYRINGE IV PUSH (09:07)
[2024-03-16] MEDS: LIDOCAINE HCL 2% LOCAL INJ 20 ML VIAL 10 ML INFILTRATE (09:38)
--- NOTE | 2024-03-16 09:44 | P.OP_ITS ---
Procedure Note - Detailed Date of Procedure 03/16/24 Pre-op Diagnosis Plantar Fasciitis Left Foot Post-op Diagnosis Same Procedure Performed Partial plantar fasciectomy left foot Surgeon Amado Bardales Jr., DPM Anesthesia MAC and Local Indications Chronic inferior left heel pain Findings Thick narrow plantar fascia Description of Procedure Under mild sedation, the patient was brought in to the operating room, placed on the operating table in the supine position. A pneumatic ankle tourniquet was placed about the patient's ankle. Following general anesthesia, local anesthesia was obtained about the affected lower extremity utilizing 20 mL of a one to mix of 2% Lidocaine plain and 0.5% Marcaine plain to the tibial nerve. The foot was then scrubbed, prepped, and draped in the usual aseptic manner. An Esmarch bandage was then used to exsanguinate the patient's foot and the pneumatic ankle tourniquet was then inflated. Next, an incision was made starting distal to the medial tubercle of the calcane us extending distally 3cm. All bleeders were cauterized as necessary. Next the dissection was continued down to the plantar fascia it was exposed medially and laterally with [place] retractors. Two thirds of the medial plantar fascia was transected and a 4mm portion was also cut and discarded. The wound site was flushed with sterile saline. The deep subcutaneous tissue was reapproximated with 3.0 Vicryl and the skin was reapproximated with 2.0 Prolene and 3.0 Prolene in Vertical mattress and Simple interrupted suture technique. Upon completion of the procedure, the plantar incision was dressed with adaptic, 4x4 gauze, kerlix and coban. The pneumatic ankle tourniquet was then deflated and a prompt hyperemic response was noted to all digits of the affected foot. A CAM Walker boot was then applied. The patient did very well with the procedure and the anesthesia. The patient was transferred to the recovery room with vital signs stable and vascular status intact to all toes of the affected foot. Following a period of postoperative monitoring, the patient will be discharged home on the following written and oral postoperative instructions: 1. The patient should keep the dressing clean, dry, and intact. Use a cast protector bag with showers. 2. The patient will be strictly protected weight bearing with CAM walker boot. 3. Patient should ice and elevate the affected foot when at rest. 4. The patient is to contact Dr. Bardales for all postop care and if any problems arise. 5. Prescriptions were written for Percocet 5/325 dispensed 40 to be taken 1 p.o. q.4-6 hours as needed for severe pain. Estimated Blood Loss 1 Drains No Packing No Pathology None sent Complications No immediate complications Condition Stable Disposition Same day
[2024-03-16 09:59] VITALS: BP 109/74; PULSE 64; RESP 16; O2SAT 99
[2024-03-16 10:15] VITALS: BP 111/76; PULSE 57; RESP 16; O2SAT 97
--- NOTE | 2024-03-16 10:32 | WPDANESPN ---
Anes - Prog Note Post-Op Date/Time: 03/16/24 10:32 Cardiovascular status: normal Respiratory status: normal Airway patency: baseline Mental status: baseline Post-Op hydration status: normal Vital Signs: Last Vital Signs Temp 36.5 C 03/16/24 07:40 Pulse 57 L 03/16/24 10:15 Resp 16 03/16/24 10:15 BP 111/76 03/16/24 10:15 Pulse Ox 97 03/16/24 10:15 O2 Del Method Room Air 03/16/24 10:15 Pain Score (VAS): 0 I/O: Intake & Output 03/15/24 03/16/24 03/16/24 23:59 07:59 15:59 Intake Total 0 Balance 0 Post-procedural complaints: none Patient Feedback: Patient satisfied with anesthetic care. Other Findings: Patient vital signs back to baseline. Patient denies nausea and vomiting. Patient's pain under control. Patient OK for discharge.
[2024-03-16 10:40] VITALS: BP 119/88; PULSE 55; RESP 18; O2SAT 98
== END 2024-03-16 11:04 | disposition home or self-care (01) ==
PROVIDERS: PCP Family Medicine; Visit Provider Podiatrist Foot & Ankle Surgery
PROC: (CPT 28119; principal; 2024-03-16 08:45)
DX: M72.2 Plantar fascial fibromatosis (principal)
CPT/HCPCS: 28060

== ENCOUNTER 2024-10-26 06:41 | Day surgery (SDC) | payer SELFPAY ==
[2024-10-16 11:46] VITALS: BMI 25.7
--- NOTE | ~2024-10-26 | XR_ITS ---
INTRAOPERATIVE FLUOROSCOPY: CLINICAL HISTORY: 63 years old Male; HAMMERTOE REPAIR 2ND DIGIT LEFT FOOT PROCEDURE COMMENTS: Limited intraoperative fluoroscopy of the left foot was performed. CUMULATIVE DOSE: 0.03 mGy FLUOROSCOPY TIME: 6 seconds FINDINGS/IMPRESSION: Please refer to operative note for further details. Reviewed, dictated and finalized at location A.
--- NOTE | 2024-10-26 07:08 | WPDHPUPDATE1 ---
History and Physical Update Update Date/Time: 10/26/24 07:08 History and Physical has been reviewed, including an updated exam of the patient. There are NO changes in the patient's condition. Risks, benefits, and alternatives have been discussed and questions answered. Patient agrees to proceed with procedure.
[2024-10-26 07:20] VITALS: BP 121/86; PULSE 45; RESP 18; TEMP 36.9; O2SAT 97; BMI 25.7
--- NOTE | 2024-10-26 07:51 | P.PNAN_ITS ---
Anes - Initial Pre Proc Eval Procedure: Operation Date: 10/26/24 08:15 Proposed Procedures p Hammertoe Repair Second Digit Left Foot - Amado Bardales Jr., DPM Date/Time: 10/26/24 07:51 Surgeon: Amado Bardales Jr., DPM Pre Op Diagnosis: Hammer Toe, 2nd Digit, Left Foot Patient Data Age: 63 Gender: M Height: 1.8 m Weight: 83.7 kg Last Vital Signs Temp 98.4 F 10/26/24 07:20 Pulse 45 L 10/26/24 07:20 Resp 18 10/26/24 07:20 BP 121/86 10/26/24 07:20 Pulse Ox 97 10/26/24 07:20 O2 Del Method Room Air 10/26/24 07:20 Allergies Allergy/AdvReac Type Severity Reaction Status Date / Time No Known Allergies Allergy Verified 10/26/24 07:17 Home Medications ?Medication ?Instructions ?Recorded ?Confirmed ?Type ascorbic acid (vitamin C) 500 mg 500 mg PO DAILY 03/01/24 10/26/24 History tablet cholecalciferol (vitamin D3) 25 25 mcg PO DAILY 03/01/24 10/26/24 History mcg (1,000 unit) tablet (Vitamin D3) magnesium 500 mg tablet 500 mg PO DAILY 03/01/24 10/26/24 History multivitamin with minerals-folic 1 tablet PO DAILY 03/01/24 10/26/24 History acid 0.4 mg tablet zinc 50 mg capsule 50 mg PO DAILY 03/01/24 10/26/24 History Patient hx anesthesia problems: none Family hx anesthesia problems: none Results Review: All pre-operative results and documents have been reviewed as part of the pre- operative evaluation. [facility] Past Medical History Medical History Asthma Diverticulosis Surgical History Surgical History No pertinent past surgical history Family History Family History Father Diabetes mellitus Family history of cardiovascular disease Acute myocardial infarction Mother Family history of lung cancer Diabetes mellitus Sibling Depression Other Asthma Social History Social History Smoking status: Never smoker Second hand tobacco smoke exposure: Yes Alcohol intake: never Substance use: never Substance use type: does not use Living arrangements: with family Gender identity (if verbalized by the patient): Male Spiritual care concerns: No Anes - Eval Final PreProcedure Day of Procedure 10/26/24 07:51 Heart: regular rate and rhythm Lungs: clear to auscultation Airway: Mallampati scale class 1 Neurological: alert and oriented Last oral intake: >/= 8 hours ASA classification: II Anesthetic plan: proceed Anesthesia type and monitoring: monitored anesthesia care Results Review: All pre-operative results and documents have been reviewed as part of the pre- operative evaluation. Informed Consent: The patient's anesthetic plan and its attendant risks and benefits were discussed with the patient/family/POA. Questions were solicited and answers provided to the satisfaction of the patient/family/POA.
[2024-10-26] MEDS: LACTATED RINGERS 1,000 ML 30 ML IV CONT (08:00)
[2024-10-26] MEDS: ceFAZolin SODIUM 2 GM/20 ML SW SYRINGE IV PUSH (08:21)
--- NOTE | 2024-10-26 08:21 | SUR.PREOP ---
0810: DR BOSCH NOTIFIED THAT PT HAS A TINY DRY ABRASION TO 2ND TOE LT FOOT. ALSO, CLIPPER SURGICAL SHAVE WAS DONE TO TOES AND TOP OF FOOT. DR BOSCH STATES NO NEED TO SHAVE FURTHER.
[2024-10-26] MEDS: BUPivacaine HCL 0.5% PF 30 ML VIAL 10 ML INFILTRATE (08:37)
[2024-10-26] MEDS: LIDOCAINE 2% LOCAL INJ 20 ML VIAL 10 ML INFILTRATE (08:37)
--- NOTE | 2024-10-26 08:56 | WPDANESPN ---
Anes - Prog Note Post-Op Date/Time: 10/26/24 08:56 Vital Signs: Last Vital Signs Temp 98.4 F 10/26/24 07:20 Pulse 45 L 10/26/24 07:20 Resp 18 10/26/24 07:20 BP 121/86 10/26/24 07:20 Pulse Ox 97 10/26/24 07:20 O2 Del Method Room Air 10/26/24 07:20 Pain Score (VAS): no Patient Feedback: Patient satisfied with anesthetic care.
--- NOTE | 2024-10-26 09:12 | W.PM.PROC2 ---
Procedure Note - Detailed Date of Procedure 10/26/24 Pre-op Diagnosis Hammer Toe, 2nd Digit, Left Foot Post-op Diagnosis Same Procedure Performed 1. Hammertoe repair 2nd digit left foot with a proximal interphalangeal joint arthrodesis 2. Open extensor tenotomy left 2nd digit Surgeon Amado Bardales Jr., DPM Anesthesia MAC and Local Indications Painful 2nd digit left foot Description of Procedure Under mild sedation, the patient was brought in to the operating room, placed on the operating table in the supine position. A pneumatic ankle tourniquet was placed about the patient's ankle. Following monitored anesthesia care, local anesthesia was obtained about the right ankle with a ring block utilizing 20 mL of a 1:1 mixture of 2% Lidocaine plain and 0.5% Marcaine plain . The foot was then scrubbed, prepped, and draped in the usual aseptic manner. An Esmarch bandage was then used to exsanguinate the patient's foot and the pneumatic ankle tourniquet was then inflated. Attention was directed to the second digit of the left foot where a 3cm incision was made from the distal interphalangeal joint extending to the 2nd digit base of the proximal phalanx. A transverse tenotomy was created dorsal to the proximal interphalangeal joint, next the head of the proximal phalanx was resected with an oscillating saw blade, the Arthrex hammertoe planer was used to denude and prepare the joint for the hammertoe implant from the base of the middle phalanx and distal proximal phalanx, I inserted the 14mm Arthrex dynanite straight hammertoe implant in a cannulated fashion using standard techniques. After good positioning of the implant the guide wire was removed. There was slight elevation of the second digit so I made a seperate 1.5cm incision proximal to the metatarsal head and released the long extensor tendon to the digit. The elevation of the digit was reduced. I closed both incisions with 4-0 Vicryl and Skin with 4-0 Prolene in horintal and simple interrupted suture fashion technique. Excellent correction of the hammertoe deformity was noted. Upon completion of the procedure, the incisions were dressed with Adaptic, 4x4s, Kerlix, and Coban. The pneumatic ankle tourniquet was then deflated and a prompt hyperemic response was noted to all digits of the right foot. A surgical shoe was then applied. The patient did very well with the procedure and the anesthesia. The patient was transferred to the recovery room with vital signs stable and vascular status intact to all toes of the left foot. Following a period of postoperative monitoring, the patient will be discharged home on the following written and oral postoperative instructions: 1. The patient should keep the dressing clean, dry, and intact. Use a cast protector bag with showers. 2. The patient will be protected with a surgical shoe 3. Patient should ice and elevate the affected foot when at rest. 4. The patient is to contact Dr. Bardales for all postop care and if any problems arise. 5. Prescriptions were written for Percocet 5/325 to be taken 1 p.o. q.4-6 hours as needed for severe pain. Implants Arthrex 14mm Hammertoe Dynanite implant Estimated Blood Loss 1 Drains No Packing No Pathology None sent Complications No immediate complications Condition Stable Disposition Same day
[2024-10-26 09:13] VITALS: BP 101/67; PULSE 64; RESP 16; O2SAT 96
[2024-10-26 09:35] VITALS: BP 103/67; PULSE 58; RESP 16; O2SAT 100
--- NOTE | 2024-10-26 09:53 | SUR.PHASEII ---
PT AWAKE AND ALERT. SITTING UP EATING CRACKERS AND TAKING PO FLUIDS. TALKATIVE. ASKING TO GO HOME. SPOUSE REMAINS AT BEDSIDE
[2024-10-26 10:00] VITALS: BP 130/90; PULSE 55; RESP 18; O2SAT 99
== END 2024-10-26 10:15 | disposition home or self-care (01) ==
PROVIDERS: PCP Family Medicine; Visit Provider Podiatrist Foot & Ankle Surgery
PROC: (CPT 28285; principal; 2024-10-26 08:15)
DX: M20.42 Other hammer toe(s) (acquired), left foot (principal)
CPT/HCPCS: 28285; 28234; 99199

== ENCOUNTER 2024-12-14 09:48 | Outpatient (CLI) | payer SELFPAY ==
[2024-12-14 13:29] LABS: Alanine Aminotransferase 38 U/L (6-50); Albumin Level 4.7 g/dL (3.5-5.1); Alkaline Phosphatase 83 U/L (38-126); Anion Gap 9 mmol/L (4-12); Aspartate Amino Transferase 52 U/L (17-59); Bilirubin,Total 0.6 mg/dL (0.2-1.3); Blood Urea Nitrogen 15 mg/dL (9-20); Calcium 9.9 mg/dL (8.4-10.2); Carbon Dioxide 27 mmol/L (22-30); Chloride 105 mmol/L (98-107); Cholesterol 202 mg/dL (0-200); Estimated Glomerular Filt Rate > 60; Glucose 89 mg/dL (65-110); HDL Direct 38 mg/dL; Potassium 4.6 mmol/L (3.4-5.0); Sodium 141 mmol/L (137-145); Total Protein 8.8 g/dL (6.3-8.2); Triglycerides 85 mg/dL (<150)
[2024-12-14 14:51] LABS: Prostate Specific Antigen 0.5 ng/mL (< OR = 4.0); Vitamin B12 644.0 pg/mL (239-931)
== END 2024-12-14 09:49 | disposition home or self-care (01) ==
LOC: ANHGOSHLAB 09:49
PROVIDERS: PCP Family Medicine; Visit Provider Family Medicine
DX: Z00.00 Encounter for general adult medical examination without abnormal findings (principal); Z12.5 Encounter for screening for malignant neoplasm of prostate
CPT/HCPCS: 36415; 80053; 80061; 82306; 82607; 84153; G0103